=== PATIENT | male | born 1985 | race Caucasian/White ===

== ENCOUNTER 2016-10-22 10:38 | Emergency (ER) | payer OTHER ==
[~2016-10-22] VITALS: Ht 182.9 cm; Wt 84.1 kg
[2016-10-22 10:40] VITALS: BP 158/91; PULSE 87; RESP 14; O2SAT 97
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
== END 2016-10-22 11:35 | disposition home or self-care (01) ==
LOC: SED 10:38
DX: S00.81XA Abrasion of other part of head, initial encounter (principal); Y04.0XXA Assault by unarmed brawl or fight, initial encounter; Y93.89 Activity, other specified; Y92.69 Other specified industrial and construction area as the place of occurrence of the external cause; Y99.0 Civilian activity done for income or pay